=== PATIENT | male | born 2000 | race Hispanic/Latino ===

== ENCOUNTER 2018-04-08 19:12 | Emergency (ER) | payer BC ==
[~2018-04-08] VITALS: Ht 177.8 cm; Wt 117.2 kg
[2018-04-08] MEDS ORDERED: KEFLEX500 M1 PO (19:56)
[2018-04-08] MEDS ORDERED: PERCOCET 5/325M1 TAB PO (19:56)
[2018-04-08 20:15] VITALS: BP 128/81
== END 2018-04-08 20:15 | disposition home or self-care (01) | DRG 607 ==
LOC: ED 19:12
DX: L60.0 Ingrowing nail (principal)